=== PATIENT | male | born 1970 | race Caucasian/White ===

== ENCOUNTER 2017-07-19 09:57 | Emergency (ER) | payer BC ==
[~2017-07-19] VITALS: Ht 180.3 cm; Wt 70.0 kg
[2017-07-19 09:59] VITALS: BP 130/71; PULSE 60; RESP 20; TEMP 98.1; O2SAT 100
[2017-07-19] MEDS ORDERED: VENTAER INH (10:12)
[2017-07-19] MEDS ORDERED: diphenhydrAMINE HCL 50 MG/ML VIAL IV PUSH ONE (10:15)
[2017-07-19] MEDS ORDERED: PROCHLORPERAZINE INJ 10 MG/2 ML VIAL IV PUSH ONE (10:15)
[2017-07-19] MEDS ORDERED: MORPHINE SULFATE 4 MG/ML INJ IV ONE (10:15)
[2017-07-19] MEDS ORDERED: SODIUM CHLOR 0.9% 1000 ML INJ 1,000 ML IV ONE ×2 (10:15→11:30)
[2017-07-19] MEDS ORDERED: KETOROLAC TROMETHAMINE 30 MG/ML (IVP) VIAL IVP ONE (10:15)
[2017-07-19] MEDS ORDERED: SODIUM CHLORIDE 0.9% FLUSH 10 ML FLUSH IVF PRN (10:15)
--- NOTE | 2017-07-19 10:56 | PD ---
HPI . Flank pain Chief Complaint: Flank/Kidney Pain Time Seen by Provider: 10:09 Travel History International Travel<30 days: No Contact w/Intl Traveler<30days: No Traveled to known affect area: No History of Present Illness HPI Patient presents with chief complaint of left flank pain. Onset 1 hour prior to presentation. Associated symptom is nausea. Pain is rated 10/10. No modifying factors. History of previous kidney stones. PFSH Past Medical History Diminished Hearing: No Tetanus Vaccination: > 5 Years Influenza Vaccination: No Social History Alcohol Use: No Tobacco Use: No Substance Use: No Allergies-Medications (Allergen,Severity, Reaction): Coded Allergies: Penicillins (Verified Allergy, Unknown, 07/19/17) Reported Meds & Prescriptions Reported Meds & Active Scripts Active Reported Ventolin Hfa 18 GM Inh (Albuterol Sulfate) 90 Mcg/Act Aer 2 Puff INH Q4-6H PRN Review of Systems Except as stated in HPI: all other systems reviewed are Neg Physical Exam Narrative GENERAL: Awake and alert and in no acute distress. SKIN: Warm and dry. HEAD: Normocephalic/atraumatic. EYES: Pupils are equal. Extraocular movements are intact. NECK: Normal range of motion. CARDIOVASCULAR: Regular rate and rhythm. RESPIRATORY: Nonlabored respirations. ABDOMEN: Soft and nontender. No CVA tenderness. MUSCULOSKELETAL: Atraumatic. NEUROLOGICAL: Nonfocal. PSYCHIATRIC: Appropriate mood and affect. Data Data Last Documented VS Vital Signs Date Time Temp Pulse Resp B/P (MAP) Pulse Ox O2 Delivery O2 Flow Rate FiO2 07/19/17 09:59 98.1 60 20 130/71 (90) 100 Orders Orders Urinalysis - C+S If Indicated (07/19/17 10:10) Ct Abd/Pel W/O Iv Contrast (07/19/17 10:10) Iv Access Insert/Monitor (07/19/17 10:10) Ketorolac Inj (Toradol Inj) (07/19/17 10:15) Sodium Chloride 0.9% Flush (Ns Flush) (07/19/17 10:15) Diphenhydramine Inj (Benadryl Inj) (07/19/17 10:15) Prochlorperazine Inj (Compazine Inj) (07/19/17 10:15) Morphine Inj (Morphine Inj) (07/19/17 10:15) Sodium Chlor 0.9% 1000 Ml Inj (Ns 1000 M (07/19/17 10:15) Sodium Chlor 0.9% 1000 Ml Inj (Ns 1000 M (07/19/17 11:30) Labs Laboratory Tests Test 07/19/17 11:17 Urine Color YELLOW Urine Turbidity CLOUDY Urine pH 5.5 Urine Specific Carmine GREATER/EQUAL 1.030 Urine Protein 30 mg/dL Urine Glucose (UA) NEG mg/dL Urine Ketones TRACE mg/dL Urine Occult Blood LARGE Urine Nitrite NEG Urine Bilirubin NEG Urine Urobilinogen 1.0 MG/DL Urine Leukocyte Esterase NEG Urine RBC INNUM /hpf Urine WBC 0-2 /hpf Urine Squamous Epithelial Cells 0-5 /hpf Urine Bacteria RARE /hpf Urine Hyaline Casts 0-2 /lpf Urine Mucus MOD /lpf Microscopic Urinalysis Comment CULT NOT INDICATED MDM Medical Decision Making Medical Screen Exam Complete: Yes Emergency Medical Condition: Yes Differential Diagnosis Differential diagnosis of flank pain includes but is not limited to kidney stone , pyelonephritis, musculoskeletal pain, PE Narrative Course Patient presents with acute left flank pain. He has a history of kidney stones. An IV has been started and he has been given IV Toradol, morphine, Compazine and Benadryl. He is now resting comfortably. CT and UA are pending. Last Impressions Abdomen/Pelvis CT 07/19/17 1010 Signed Impressions: Service Date/Time: , July 19, 2017 10:32 - CONCLUSION: 1. There is a single 4-5 mm stone at the left UPJ causing some mild hydronephrosis. Iggy Mckeon MD UA>>blood. Diagnosis Primary Impression: Left flank pain Patient Instructions: General Instructions, Kidney Stones (DC) Med/Other Pt SpecificInfo: Prescription(s) given Scripts Tamsulosin (Flomax) 0.4 Mg Cap 0.4 MG PO HS for Manage Prostate Problems, #30 CAP 0 Refills Prov: Luciana Blair MD 07/19/17 Promethazine (Phenergan) 25 Mg Tablet 25 MG PO Q6H Y for NAUSEA OR VOMITING, #12 TAB 0 Refills Prov: Luciana Blair MD 07/19/17 Oxycodone-Acetaminophen (Percocet) 5-325 mg Tab 1 TAB PO Q4H Y for PAIN, #12 TAB 0 Refills Prov: Luciana Blair MD 07/19/17 Disposition: 01 DISCHARGE HOME Condition: Stable Luciana Blair MD July 19, 2017 10:56
--- NOTE | 2017-07-19 10:56 | RADRPT ---
EXAM DATE/TIME: 07/19/2017 10:32 [facility] COMPARISON: No previous studies available for comparison. INDICATIONS : Left flank pain. ORAL CONTRAST: No oral contrast ingested. RADIATION DOSE: 4.50 CTDIvol (mGy) MEDICAL HISTORY : None SURGICAL HISTORY : None. ENCOUNTER: Initial ACUITY: 1 day PAIN SCALE: 10/10 LOCATION: Left flank TECHNIQUE: Volumetric scanning of the abdomen and pelvis was performed. Using automated exposure control and ad justment of the mA and/or kV according to patient size, radiation dose was kept as low as reasonably achievable to obtain optimal diagnostic quality images. DICOM format image data is available electro nically for review and comparison. The lack of IV contrast limits the diagnosis for certain organ pa thology. FINDINGS: LOWER LUNGS: The visualized lower lungs are clear. LIVER: Homogeneous density without lesion. There is no dilation of the biliary tree. No calcified gallston es. SPLEEN: Normal size without lesion. PANCREAS: Within normal limits. KIDNEYS: The right kidney is unremarkable. No evidence of hydronephrosis or calcified renal stones. There is a 4-5 mm stone at the left UPJ causing mild hydroureter of the left kidney. The ureters are nondilated . ADRENAL GLANDS: Within normal limits. VASCULAR: There is no aortic aneurysm. BOWEL/MESENTERY: The stomach, small bowel, and colon demonstrate no acute abnormality. There is no free intraperitone al air or fluid. The appendix is unremarkable. No inflammatory changes. ABDOMINAL WALL: Within normal limits. RETROPERITONEUM: There is no lymphadenopathy. BLADDER: No wall thickening or mass. No stones. REPRODUCTIVE: Within normal limits. INGUINAL: There is no lymphadenopathy or hernia. MUSCULOSKELETAL: Within normal limits for patient age. CONCLUSION: 1. There is a single 4-5 mm stone at the left UPJ causing some mild hydronephrosis. Iggy Mckeon MD on July 19, 2017 at 10:50 Board Certified Radiologist. This report was verified electronically.
[2017-07-19 11:53] LABS: BLOOD, URINE LARGE (NEG); GLUCOSE,URINE NEG (NEG); KETONE, URINE TRACE mg/dL (NEG); NITRITE,URINE NEG (NEG); PH, URINE 5.5 (5.0-8.5); URINE COLOR YELLOW (YELLW/STRAW); URINE LEUKOCYTE ESTERASE NEG (NEG)
[2017-07-19 11:55] LABS: BILIRUBIN, URINE NEG (NEG)
[2017-07-19 12:00] LABS: MUCUS URINE MOD /lpf (OCC); RBC, URINE INNUM /hpf (0-3); SQUAMOUS EPITHELIAL CELL URINE 0-5 /hpf (0-5); WBC, URINE 0-2 /hpf (0-5)
[2017-07-19 12:01] LABS: BACTERIA, URINE RARE /hpf; HYALINE CAST, URINE 0-2 /lpf (RARE)
[2017-07-19] MEDS ORDERED: TAMS5CAP PO (12:08)
[2017-07-19] MEDS ORDERED: PERC5TAB12 PO (12:08)
[2017-07-19] MEDS ORDERED: PROM25TA10 PO (12:08)
== END 2017-07-19 12:14 | disposition home or self-care (01) ==
LOC: PHED 09:57
DX: R10.9 Unspecified abdominal pain (principal); N13.2 Hydronephrosis with renal and ureteral calculous obstruction; Z87.442 Personal history of urinary calculi
CPT/HCPCS: 74176; 81001; 96361; 96374; 96375; 99284; J0780; J1200; J1885; J2270; J7030